=== PATIENT | female | born 1990 | race Caucasian/White ===

== ENCOUNTER → 2020-04-30 | Outpatient (CLI) | payer BC | LOC: LAB FS 15:22 | PROVIDERS: ATTEND Family Medicine | DX: N92.6 Irregular menstruation, unspecified (principal) | CPT/HCPCS: 36415; 84702 ==

== ENCOUNTER → 2020-10-15 | Outpatient (CLI) | payer BC, OTHER ==
[2020-10-15 09:48] LABS: HEMOGLOBIN 11.7 G/DL (11.5-16.0); MEAN PLATELET VOLUME 10.3 FL (7.4-10.4); WHITE BLOOD COUNT 6.1 10^3/uL (4.3-11.0)
== END ==
LOC: LAB FS 09:11 → MERGE 09:11
PROVIDERS: ATTEND Family Medicine
DX: O09.91 Supervision of high risk pregnancy, unspecified, first trimester (principal); Z3A.00 Weeks of gestation of pregnancy not specified
CPT/HCPCS: 36415; 85027; 86703; 86762; 86780; 86850; 86900; 86901; 87088; 87340

== ENCOUNTER → 2021-03-03 | Outpatient (CLI) | payer BC ==
[2021-03-03 11:57] LABS: HEMATOCRIT 33 % (35-52); HEMOGLOBIN 11.1 G/DL (11.5-16.0); MEAN CORPUSCULAR HEMOGLOBIN 31 PG (25-34); MEAN CORPUSCULAR HGB CONC 34 G/DL (32-36); MEAN CORPUSCULAR VOLUME 91 FL (80-99); WHITE BLOOD COUNT 6.2 10^3/uL (4.3-11.0)
[2021-03-03 11:58] LABS: MEAN PLATELET VOLUME 10.7 FL (7.4-10.4); PLATELET COUNT 169 10^3/uL (130-400)
== END ==
LOC: LAB FS 11:29
PROVIDERS: ATTEND Family Medicine
DX: Z34.91 Encounter for supervision of normal pregnancy, unspecified, first trimester (principal); Z3A.00 Weeks of gestation of pregnancy not specified
CPT/HCPCS: 36415; 82950; 85027; 86780

== ENCOUNTER → 2021-03-11 | Outpatient (CLI) | payer BC ==
--- NOTE | 2021-03-11 09:28 | Diagnostic Imaging Report ---
INDICATION: survey. TECHNIQUE: Multiple real-time grayscale images were obtained over the gravid uterus. COMPARISON: None FINDINGS: There is a single live fetus in a cephalic presentation. heart rate was recorded at 140 bpm. The placenta is anterior. Amniotic fluid volume appears normal. The kidneys, bladder and stomach are unremarkable. brain anatomy is somewhat limited due to position. There is a 4 chamber heart. There is a 3 vessel cord with normal insertion. spine is unremarkable. Biometrical measurements are as follows: Biparietal 8.03 cm, age 32 weeks 2 days. Head circumference 27.81 cm, age 30 weeks 4 days. Abdominal circumference 26.43 cm, age 30 weeks 4 days. Femur length 5.81 cm, age 31 weeks 1 days. Sonographic estimate age: 31 weeks 0 days. Sonographic estimated date of delivery: 05/13/2021. Estimated Weight: 1607 gm (+/- 235 gm). LMP percentile: 93%. heart rate: 140 beats per minute. number: 1 of 1. IMPRESSION: Single live IUP approximately 31 weeks 0 days gestational age. Estimated date of confinement sonographic is 05/13/2021. Dictated by: Dictated on workstation # [id number]
== END ==
LOC: RAD FS 08:02
PROVIDERS: ATTEND Family Medicine
DX: O09.93 Supervision of high risk pregnancy, unspecified, third trimester (principal); Z3A.31 31 weeks gestation of pregnancy
CPT/HCPCS: 76805

== ENCOUNTER → 2021-05-10 | Outpatient (CLI) | payer BC | LOC: LABNPT 14:41 | PROVIDERS: ATTEND Family Medicine | DX: M54.5 Low back pain (principal) | CPT/HCPCS: 87088 ==

== ENCOUNTER → 2021-05-14 | Outpatient (CLI) | payer BC | LOC: LABNPT 15:27 | PROVIDERS: ATTEND Registered Nurse Emergency | DX: N39.0 Urinary tract infection, site not specified (principal) | CPT/HCPCS: 87088 ==

== ENCOUNTER → 2021-06-15 | Outpatient (CLI) | payer BC ==
[2021-06-15 12:30] LABS: WHITE BLOOD COUNT 6.5 10^3/uL (4.3-11.0)
[2021-06-15 12:31] LABS: BASOPHILS % (AUTO) 0 % (0-10); EOSINOPHILS % (AUTO) 1 % (0-10); HEMATOCRIT 38 % (35-52); HEMOGLOBIN 12.9 g/dL (11.5-16.0); LYMPHOCYTES % (AUTO) 30 % (12-44); MEAN CORPUSCULAR HEMOGLOBIN 30 pg (25-34); MEAN CORPUSCULAR HGB CONC 34 g/dL (32-36); MEAN CORPUSCULAR VOLUME 88 fL (80-99); MEAN PLATELET VOLUME 10.4 fL (9.0-12.2); MONOCYTES % (AUTO) 7 % (0-12); NEUTROPHILS % (AUTO) 62 % (42-75); PLATELET COUNT 229 10^3/uL (130-400)
[2021-06-15 12:32] LABS: EOSINOPHILS # (AUTO) 0.1 10^3/uL (0.0-0.3); MONOCYTES # (AUTO) 0.4 X 10^3 (0.0-1.0)
== END ==
LOC: LAB FS 11:49
PROVIDERS: ATTEND Registered Nurse Emergency
DX: R55 Syncope and collapse (principal)
CPT/HCPCS: 36415; 84443; 85025